=== PATIENT | female | born 1955 | race Asian ===

== ENCOUNTER 2018-12-01 12:39 | Emergency (ER) | payer MEDICARE ==
[~2018-12-01] VITALS: Ht 165.1 cm; Wt 59.0 kg
[2018-12-01] MEDS ORDERED: IBUPROFEN 600MG TABLET PO STA (13:52)
[2018-12-01 14:42] LABS: BASOPHILS % 0.5 % (0.0-2.0); EOSINOPHILS % 11.6 % (0.0-5.0); HEMATOCRIT. 39.8 % (36.0-48.0); HEMOGLOBIN. 13.5 g/dL (12.0-16.0); LYMPHOCYTES % 20.7 % (20.0-50.0); MEAN CORPUSCULAR HEMOGLOBIN 30.5 pg (28.0-32.0); MEAN CORPUSCULAR VOLUME 89.8 fL (81.0-99.0); MEAN PLATELET VOLUME 8.7 fl (7.4-10.4); MONOCYTES % 8.8 % (2.0-8.0); NEUTROPHILS % 58.4 % (40.0-76.0); PLATELET 275 x1000/uL (130-400); RED BLOOD CELL COUNT 4.44 mill/uL (4.2-5.4); RED CELL DISTRIBUTION WIDTH 14.3 % (11.6-14.6)
[2018-12-01 14:44] LABS: CHLORIDE 105 mEq/L (98-107)
[2018-12-01 14:46] LABS: INR 0.9; PROTHROMBIN TIME 9.7 sec (9.6-11.0)
[2018-12-01 16:59] VITALS: BP 132/77
== END 2018-12-01 17:11 | disposition home or self-care (01) ==
LOC: ER 12:39
DX: R25.2 Cramp and spasm (principal); F41.9 Anxiety disorder, unspecified; I10 Essential (primary) hypertension; E78.00 Pure hypercholesterolemia, unspecified; E07.9 Disorder of thyroid, unspecified
CPT/HCPCS: 36415; 71045; 83880; 84484; 93005; 93970; 99284